=== PATIENT | female | born 1965 | race Hispanic/Latino ===

== ENCOUNTER 2021-05-26 06:08 | Day surgery (SDC) | payer OTHER ==
[~2021-05-26] VITALS: Ht 152.4 cm; Wt 95.5 kg
[~2021-05-26 06:08] MED LIST: METFORMIN HCL500 M2 PO; VICTOZA 3-0.6 MG/0.1 SUB-Q
[2021-05-26] MEDS ORDERED: ADULT LOW DOSE81 MG PO (07:22)
--- NOTE | 2021-05-26 11:07 | NUR ---
05/26/21 1107 Jose R Cormier OPENS EYES TO TAP AND VOICE AT 1105. OPA REMOVED. FALLS ASLEEP EASILY. 02 WEANED TO 8L.
--- NOTE | 2021-05-26 11:52 | NUR ---
PATIENT BACK FROM PACU. REPORT RECIEVED FROM EMIR SHAH. PATIENT IS DROWSY. PATIENT IS ON 2 LITERS NASAL CANULUA. OXYGEN SATURATIONS ARE ABOVE 95%. RR WNL. BREATHING EQUAL AND UNLABORED. PATIENT COMPLAINS OF NASEAU. PATIENT 4 LAP SITES COVER WITH GUAZE. GUAZE IS CLEAN, DRY AND INTACT. PATIENT COMPLAINS OF 3/10 ACHING PAIN AT SURGICAL SITE. ICE APPLIED TO SITE. IV SITE IS PATENT. NO QUESTIONS AT THIS TIME. CALL LIGHT WITHIN REACH NO FUTHER NEEDS.
--- NOTE | 2021-05-26 12:55 | NUR ---
PT RESTING WITH EYES CLOSED REPORTS PAIN 5/10 TO ABD, SHE STATES PAIN IS TOLERABLE, CALL LIGHT WITHIN REACH.
--- NOTE | 2021-05-26 12:57 | NUR ---
PT REPORTS NAUSEA IN MUCH BETTER.
--- NOTE | 2021-05-26 13:50 | NUR ---
PATIENT ASSESSMENT COMPLETE. PATIENT IS ALERT AND ORIENTED. COMPLAINS OF 4/10 PAIN AT THE LAP SITES. ICE APPILED TO SITES. SURGICAL LAP SITES HAVE SMALL MODERATE DRAINAGE OF BLOOD. INTACT. PATIENT WAS TITRATED DOWN TO ROOM AIR. OXYGEN SATURATIONS ARE ABOVE 95%. RR WNL. BREATHING EQUAL AND UNLABORED. PATIENT WAS ABLE TO DRINK WATER, EAT APPLESAUCE AND AMBULATE TO THE RESTROOM. PATIENT VODIED 700 MLS. CLEAR AND YELLOW URINE. CALL LIGHT WITHIN REACH NO FUTHER NEEDS. NO QUESTIONS AT THIS TIME.
--- NOTE | 2021-05-26 14:24 | NUR ---
PATIENT MET DISCHARGE CRITERIA. IV PULLED WNL. DISCHARGE INSTRUCTIONS GIVEN AND UNDERSTOOD. PERSCRIPTION GIVEN TO PATIENTS SON. PATIENT WAS WHEELED OUT IN WHEELCHAIR. NO QUESTIONS.
--- NOTE | 2021-05-29 07:45 | OR ---
[facility] [address], [place] [address] Signed DATE OF OPERATION: 05/26/2021 SURGEON: Chrystal Berry MD PREOPERATIVE DIAGNOSES: 1. Chronic cholecystitis with cholelithiasis. 2. Fatty liver. POSTOPERATIVE DIAGNOSES: 1. Chronic cholecystitis with cholelithiasis. 2. Fatty liver. PROCEDURES: Laparoscopic cholecystectomy with intraoperative cholangiogram (prolonged and difficult, add 1 hour 30 minutes and second nurse required). ESTIMATED BLOOD LOSS: Minimal. FINDINGS: Keke had tremendous chronic inflammatory changes over her gallbladder and along the liver to the falciform ligament. It took an extra 30 minutes to do her surgery and second nurse had to scrub in to provide additional retraction. We were very close to utilizing the fan retractor as well. The intraoperative cholangiogram was found to be unremarkable. In this way, her procedure was prolonged and difficult. INDICATIONS: Keke is a 55, obese, diabetic female, asked to see me for symptomatic gallstones. She is actually having left upper quadrant abdominal pain following meals. Ultrasound revealed a 10.9 x 0.5 x 11.1 mm stone in the neck of her gallbladder. We actually found that in a small pouch on the side of her gallbladder. She also had several smaller cholesterol stones as well. Her common bile duct was slightly dilated at 9.4 mm on the ultrasound, it was not dilated today. She has fatty liver on the ultrasound, and we did see that today. Liver function tests have been mildly elevated along with the alkaline phosphatase. The total bilirubin has been normal. She has finally gotten her blood sugars under better control now that she is back on her medications. In the office I had given her a brochure on the gallbladder. We had reviewed the location of function of the gallbladder. We reviewed gallstones. We reviewed the possible need for ERCP. We also reviewed the expected intraop and postop course. We reviewed the risks including, but not limited to bleeding, infection, scarring, change in contour the skin, Electronically Signed By: CHRYSTAL BERRY MD 05/29/21 0745 PATIENT NAME: KEKE CORONA I OPERATIVE REPORT DATE OF : 67 REPORT #: [id number] PHYSICIAN: CHRYSTAL BERRY MD PCP: BOB PENALOZA PA-C REPORT IS CONFIDENTIAL AND NOT TO BE RELEASED WITHOUT AUTHORIZATION [facility] [address] [place] [id number] Signed damage to bowel, damage to main bile duct, incisional hernias, and other unforeseen comorbidities. She had expressed understanding wished to proceed. DESCRIPTION OF PROCEDURE: I met with Keke and her son in our preop area. After answering questions, she was taken into the operating room and placed in the supine position under general endotracheal tube anesthesia. She was given preoperative antibiotics along with subcutaneous heparin. SCDs were utilized. She was prepped and draped in the usual sterile fashion. All trocars were placed in usual positions under direct visualization of camera without difficulty. She does have some omentum adherent to her previous infraumbilical midline incision from her previous pelvic surgeries. She had a few adhesions in the right gutter as well. The left lobe of her liver actually was quite large. The gallbladder itself was quite lateral to the right side. Thankfully, the falciform ligament was fairly small. We could easily see the fat throughout her liver. She is developing nodularity of the liver and I am sure she has some level of fibrosis. Her omentum was adherent to the gallbladder and the edge of the liver all the way over to the falciform ligament. It took a few minutes just to clear off the top of the gallbladder in the front edge of the liver with the help of the cautery. We had an additional nurse scrub in to help hold retraction. While we worked our way down the gallbladder very carefully with the cautery and with blunt dissection. We eventually dissected out the triangle of Calot. We placed a clip on the cystic artery and it had been divided. Later, a couple of more clips were placed as we dissected up the gallbladder on the cystic artery and divided again closer to the gallbladder. We introduced our cholangiocatheter into the neck of the gallbladder and down into the cystic duct. The intraoperative cholangiogram was then performed. We found this to be unremarkable. We secured the junction of the cystic duct with the neck of the gallbladder with the help of a PDS Endoloop. A single clip had been placed at this location to help malik its location. The gallbladder was then slowly very carefully removed from the gallbladder fossa with the help of cautery and placed into the EndoCatch bag. The right upper quadrant had been irrigated and suctioned out until clear. We used our laparoscopic suturing device to pass 0-Vicryl suture on either side of the fascia of the subxiphoid trocar site. This was tied down to close this fascia primarily. The gallbladder had been placed in the EndoCatch bag and it was taken out through the supraumbilical trocar site. We closed the fascia of the supraumbilical trocar site with interrupted [id number] and simple 0-Vicryl sutures. Local anesthetic was injected in all trocar sites. Each trocar site was irrigated and suctioned out until clear. The dermis was reapproximated with interrupted 3-0 subcuticular Monocryl sutures. We used ant to reapproximate the skin edges. Dry gauze and tape were then applied. Keke was awakened from anesthesia, extubated in the OR, and taken to recovery room in stable condition. Electronically Signed By: CHRYSTAL BERRY MD 05/29/21 0745 PATIENT NAME: KEKE CORONA I OPERATIVE REPORT DATE OF : 67 REPORT #: [id number] PHYSICIAN: CHRYSTAL BERRY MD PCP: BOB PENALOZA PA-C REPORT IS CONFIDENTIAL AND NOT TO BE RELEASED WITHOUT AUTHORIZATION [address], [place] [address] Signed MD VIKTOR Cano/GERI /[id number] cc: Patient Chart Bob Penaloza, Physician Leadership Development Consultant Chrystal Berry MD Copies: CHRYSTAL BERRY MD ~ Electronically Signed By: CHRYSTAL BERRY MD 05/29/21 0745 PATIENT NAME: KEKE CORONA I OPERATIVE REPORT DATE OF : 67 REPORT #: [id number] PHYSICIAN: CHRYSTAL BERRY MD PCP: BOB PENALOZA PA-C REPORT IS CONFIDENTIAL AND NOT TO BE RELEASED WITHOUT AUTHORIZATION
--- NOTE | 2021-05-30 16:19 | PATH ---
[facility] [address] [facility] [place], [place] [address] Signed SPECIMEN(S): A GALLBLADDER WITH STONE SPECIMEN SOURCE: A. GALLBLADDER WITH STONE CLINICAL HISTORY: Calculus of gallbladder; chronic cholecystitis FINAL PATHOLOGIC DIAGNOSIS: Gallbladder, cholecystectomy: - Chronic cholecystitis with cholesterolosis. - Cholelithiasis. - One lymph node with no evidence of malignancy. NAL:cml:C2NR MICROSCOPIC EXAMINATION: Histologic sections of all submitted blocks are examined by light microscopy. These findings, together with the gross examination, support the pathologic diagnosis. GROSS DESCRIPTION: The specimen, labeled "ML, A," is received in formalin and consists of: Specimen: Previously opened gallbladder. Dimensions: 8.4 x 4.7 x 0.5 cm. Serosa: Valdes and smooth. Cystic Duct: Unobstructed, margin inked black and shaved. Calculi: One black irregularly shaped calculus (0.5 cm in greatest dimension). Mucosa: Chronic velvety with yellow stippling. Wall thickness: 0.2 cm. Lymph node: One possible brown-valdes pericystic lymph node (0.9 cm in greatest dimension) Additional: None. Timekeeper Supervisor sections are submitted in cassette (A1). AC (under the direct supervision of a pathologist) The Gross Description was prepared using a voice recognition system. The report was reviewed for accuracy; however, sound-alike word errors, addition and/or deletions may occur. If there is any question about this report, please contact Client Services. PERFORMING LABORATORY: The technical component was performed by [employer], Byron Summers, PATIENT NAME: KEKE CORONA I PATHOLOGY DATE OF : 67 REPORT #: [id number] PHYSICIAN: ANG PERRY PCP: BOB PENALOZA PA-C REPORT IS CONFIDENTIAL AND NOT TO BE RELEASED WITHOUT AUTHORIZATION [facility] [address] [place], [place] [address] [place] [address] (Business Liaison Manager: Kinsey Zuniga MD; CLIA# [id number]). Professional [facility], [address] [address] (CLIA# [id number]). Diagnostician: Radha Niño MD Pathologist Electronically Signed 05/30/2021 Copies: ~ PATIENT NAME: KEKE CORONA I PATHOLOGY DATE OF : 67 REPORT #: [id number] PHYSICIAN: ANG PERRY PCP: BOB PENALOZA PA-C REPORT IS CONFIDENTIAL AND NOT TO BE RELEASED WITHOUT AUTHORIZATION
== END 2021-05-26 14:24 | disposition home or self-care (01) ==
LOC: DS 06:08
PROVIDERS: ATTEND Colon & Rectal Surgery
PROC: BF10YZZ Fluoroscopy of Bile Ducts using Other Contrast (ICD-10-PCS; 2021-05-26)
PROC: 0FT44ZZ Resection of Gallbladder, Percutaneous Endoscopic Approach (ICD-10-PCS; principal; 2021-05-26 08:15)
DX: K80.10 Calculus of gallbladder with chronic cholecystitis without obstruction (principal); K76.0 Fatty (change of) liver, not elsewhere classified; E66.9 Obesity, unspecified; E11.9 Type 2 diabetes mellitus without complications; K83.8 Other specified diseases of biliary tract; Z68.41 Body mass index [BMI] 40.0-44.9, adult; Z88.4 Allergy status to anesthetic agent; Z91.030 Bee allergy status; Z79.82 Long term (current) use of aspirin; Z79.899 Other long term (current) drug therapy
CPT/HCPCS: 74300; J0690; J1100; J1644; J1790; J1885; J2001; J2405; J2704; J3010; J7121; Q9967